=== PATIENT | female | born 1940 | race Caucasian/White ===

== ENCOUNTER 2019-03-06 14:44 | Emergency (ER) | payer SELFPAY ==
[2019-03-06 14:54] VITALS: BP 136/89; PULSE 90; TEMP 98; BMI 25.4
[2019-03-06] MEDS ORDERED: KETOROLAC TROMETHAMINE 60 MG/2 ML VIAL IM ONE (17:07)
[2019-03-06] MEDS ORDERED: KETOROLAC TROMETHAMINE 30 MG/1 ML VIAL ONE (17:08)
--- NOTE | 2019-03-06 17:15 | PDOC ---
History of Present Illness - General Chief Complaint: Back Pain Stated Complaint: BACK PAIN Time Seen by Provider: 03/06/19 17:04 - History of Present Illness Initial Comments: 03/06/19 17:14 78-year-old female presents for atraumatic back pain x1 day without systemic or radicular symptoms no loss of bowel bladder function. She has no comorbidities Past History - Past Medical History Allergies/Adverse Reactions: Allergies Allergy/AdvReac Type Severity Reaction Status Date / Time No Known Allergies Allergy Verified 03/06/19 14:54 Home Medications: Ambulatory Orders Cyclobenzaprine HCl [Flexeril 10 mg] 10 mg PO HS PRN #10 tablet 03/06/19 COPD: No - Psycho Social/Smoking Cessation Hx Smoking History: Never smoked Review of Systems - Review of Systems Musculoskeletal: Yes: Back Pain *Physical Exam - Vital Signs Last Vital Signs Temp Pulse Resp BP Pulse Ox 98 F 90 18 136/89 99 03/06/19 14:51 03/06/19 14:51 03/06/19 14:51 03/06/19 14:51 03/06/19 14:51 - Physical Exam 03/06/19 17:15 Lumbar spine skin color and temperature normal range of motion is decreased. No midline tenderness. Moderate bilateral lumbar musculature spasm and tenderness. 5 out of 5 strength bilateral lower extremities without gross sensorimotor deficits neurovascular intact. Medical Decision Making - Medical Decision Making 03/06/19 17:15 Mild relief with Toradol IM Flexeril and Tylenol at home follow-up with primary care physician Discharge - Discharge Information Problems reviewed: Yes Clinical Impression/Diagnosis: Back pain Condition: Stable Disposition: HOME - Admission No - Follow up/Referral Referrals: Noman Eisenberg MD [Staff Physician] - - Patient Discharge Instructions Additional Instructions: Please take the muscle relaxer at bedtime 1 tablet before bed it will make you sleepy. Tylenol for pain as directed. Return to the emergency room for worsening symptoms and without fail follow-up with your primary care doctor in 1 to 2 days for further evaluation and treatment options. - Post Discharge Activity
== END 2019-03-06 17:22 | disposition home or self-care (01) ==
LOC: JERFT 14:44
PROC: 3E0233Z Introduction of Anti-inflammatory into Muscle, Percutaneous Approach (ICD-10-PCS; principal; 2019-03-06)
DX: M54.89 Other dorsalgia (principal)
CPT/HCPCS: 99282-25